=== PATIENT | male | born 1995 | race Caucasian/White ===

== ENCOUNTER 2018-01-12 15:12 | Emergency (ER) | payer MEDICAID ==
[~2018-01-12] VITALS: Ht 177.8 cm; Wt 74.8 kg
[2018-01-12 15:20] VITALS: BP_SYST 157
[2018-01-12 15:44] VITALS: BP_SYST 142
== END 2018-01-12 15:44 | disposition home or self-care (01) ==
LOC: SED 15:12
DX: L25.9 Unspecified contact dermatitis, unspecified cause (principal); F17.210 Nicotine dependence, cigarettes, uncomplicated; R03.0 Elevated blood-pressure reading, without diagnosis of hypertension; Z71.6 Tobacco abuse counseling
CPT/HCPCS: 99283